=== PATIENT | male | born 2000 | race Caucasian/White ===

== ENCOUNTER 2021-05-19 14:08 | Emergency (ER) | payer BC ==
[2021-05-19 14:16] VITALS: BP 130/80; PULSE 71; TEMP 97.5; BMI 23.0
[2021-05-19 15:14] LABS: BASO % 0.3 % (0-2.0); EOS % 0.9 % (0-4.5); HEMATOCRIT 47.7 % (35.4-49); HEMOGLOBIN 15.8 GM/dL (11.7-16.9); LYMPH % 18.9 % (8-40); MCHC 33.1 g/dl (32.0-35.9); MEAN CELL VOLUME 90.5 fl (80-96); MEAN PLT VOLUME 9.6 fl (7.5-11.1); MONO % 8.3 % (3.8-10.2); NEUT % 71.6 % (42.8-82.8); PLATELET COUNT 227 10^3/uL (134-434); RBC 5.27 M/mm3 (4.00-5.60); RDW 13.2 % (11.9-15.9); WHITE BLOOD COUNT 6.6 K/mm3 (4.0-10.0)
[2021-05-19 15:22] LABS: INR 1.03 (0.83-1.09); PROTHROMBIN TIME (PATIENT) 12.6 SEC (9.7-13.0)
[2021-05-19 15:24] LABS: ACTIVATED PTT 30.1 SECONDS (25.2-36.5)
[2021-05-19 15:33] LABS: ALBUMIN 4.4 g/dl (3.4-5.0); CALCIUM 9.4 mg/dL (8.5-10.1)
[2021-05-19 15:34] LABS: BLOOD UREA NITROGEN 9.4 mg/dL (7-18)
[2021-05-19 15:37] LABS: CREATININE 0.9 mg/dL (0.55-1.3)
[2021-05-19 15:38] LABS: BILIRUBIN,TOTAL 1.1 mg/dL (0.2-1); TOT PROT 7.6 g/dl (6.4-8.2)
== END 2021-05-19 20:03 | disposition home or self-care (01) ==
LOC: JER 14:08
DX: K62.5 Hemorrhage of anus and rectum (principal)
CPT/HCPCS: 36415; 74177-TC; 80053; 82272; 85025; 85610; 85730; 86850; 86900; 86901; 99285-25; Q9967

== ENCOUNTER 2021-08-07 04:48 | Day surgery (SDC) | payer BC ==
[2021-08-05 14:24] VITALS: BMI 23.6
[2021-08-07] MEDS ORDERED: LIDOCAINE HCL 2% JELLY 10 ML CARTRIDGE ONE (07:54)
[2021-08-07] MEDS ORDERED: LIDOCAINE HCL 2% JELLY 10 ML CARTRIDGE TP ONE (08:12)
[2021-08-07] MEDS ORDERED: ACETAMINOPHEN INJECTION 100 ML IVPB ONE (08:20)
[2021-08-07 08:54] VITALS: TEMP 97.3
[2021-08-07] MEDS ORDERED: KETOROLAC TROMETHAMINE 30 MG/1 ML VIAL ONE (09:51)
[2021-08-07] MEDS ORDERED: IBUPROFEN 600 MG TABLET (FP) PO ONE (12:45)
[2021-08-07 13:21] VITALS: BP 144/67; PULSE 43
== END 2021-08-07 11:15 | disposition home or self-care (01) ==
LOC: JASU-ENDO 04:48
PROVIDERS: ATTEND Internal Medicine Gastroenterology
PROC: 065Y4ZC Destruction of Hemorrhoidal Plexus, Percutaneous Endoscopic Approach (ICD-10-PCS; principal; 2021-08-07 07:45)
DX: K64.8 Other hemorrhoids (principal); K62.5 Hemorrhage of anus and rectum

== ENCOUNTER 2022-03-19 04:21 | Day surgery (SDC) | payer BC ==
[2022-03-16 14:26] VITALS: BMI 26.2
[2022-03-19 09:55] VITALS: TEMP 97.8
[2022-03-19] MEDS ORDERED: ACETAMINOPHEN INJECTION 100 ML IVPB ONE (11:10)
[2022-03-19] MEDS ORDERED: LIDOCAINE HCL 2% JELLY 10 ML CARTRIDGE TP ONE (11:32)
[2022-03-19] MEDS ORDERED: LIDOCAINE HCL 2% JELLY 10 ML CARTRIDGE ONE (11:32)
[2022-03-19] MEDS ORDERED: KETOROLAC TROMETHAMINE 30 MG/1 ML VIAL ONE (12:51)
[2022-03-19] MEDS ORDERED: DOCUSATE SODIUM 100 MG CAPSULE (FP) PO ONE ×2 (13:00→13:06)
[2022-03-19] MEDS ORDERED: KETOROLAC TROMETHAMINE 30 MG/1 ML VIAL IVPUSH PRN (13:00)
[2022-03-19] MEDS ORDERED: oxyCODONE HCL 5 MG TABLET PO ONE (13:00)
[2022-03-19] MEDS ORDERED: oxyCODONE HCL 5 MG TABLET ONE (13:06)
[2022-03-19 13:56] VITALS: BP 123/68; PULSE 45
== END 2022-03-19 13:50 | disposition home or self-care (01) ==
LOC: JASU-ENDO 04:21
PROVIDERS: ATTEND Internal Medicine Gastroenterology
PROC: 06LY8CC Occlusion of Hemorrhoidal Plexus with Extraluminal Device, Via Natural or Artificial Opening Endoscopic (ICD-10-PCS; principal; 2022-03-19 11:30)
DX: K64.9 Unspecified hemorrhoids (principal)